=== PATIENT | male | born 1995 | race Hispanic/Latino ===

== ENCOUNTER 2019-09-08 16:35 | Emergency (ER) | payer OTHER, SELFPAY ==
[2019-09-10 12:26] LABS: SARS-CoV-2 MS2 Positive; SARS-CoV-2 N Gene Positive; SARS-CoV-2 S Gene Positive; SARS-CoV-2 orf1ab Positive
== END 2019-09-08 17:43 | disposition home or self-care (01) ==
LOC: ERS 16:35
DX: U07.1 COVID-19 (principal)
CPT/HCPCS: 87635; 99283; U0003

== ENCOUNTER 2019-09-18 10:59 | Emergency (ER) | payer OTHER, SELFPAY | END 2019-09-18 11:45 | disposition home or self-care (01) | LOC: ERS 10:59 | DX: U07.1 COVID-19 (principal) | CPT/HCPCS: 99282 ==